=== PATIENT | male | born 1970 | race Caucasian/White ===

== ENCOUNTER 2018-03-22 07:22 | Day surgery (SDC) | payer OTHER ==
[2018-03-22] MEDS ORDERED: Propofol 10 mg/ml Inj (20 ML) ONE (09:17)
--- NOTE | 2018-03-22 09:25 | CP.SDSHP ---
Same Day Surgery H & P - History Proposed Procedure: colonoscopy Pre-Op Diagnosis: history of colon polyps - Previous Medical/Surgical History Comments: hyperlipidemia - Allergies Allergies: Allergies No Known Allergies Allergy (Verified 03/22/18 08:01) - Physical Exam General Appearance: NAD Vital Signs: Vital Signs 03/22/18 08:03 Temperature 97 F L Pulse Rate 50 L Respiratory 19 Rate Blood Pressure 114/66 O2 Sat by Pulse 99 Oximetry Mental Status: Alert & Oriented x3 Neuro: WNL Heart: WNL Lungs: WNL GI: WNL - {Optional Preform as Required} Abdomen: WNL - Impression Pt. Evaluated Today:Candidate for Anesthesia & Procedure: Yes - Date & Time Date: 03/22/18 Time: 09:25 Short Stay Discharge - Short Stay Discharge Admitting Diagnosis/Reason for Visit: H/O/ COLON POLYPS Disposition: HOME/ ROUTINE
[2018-03-22 11:51] VITALS: TEMP 98.2
[2018-03-22 11:56] VITALS: O2SAT 100
[2018-03-22 12:14] VITALS: BP 133/86; PULSE 51; RESP 12
== END 2018-03-22 11:00 | disposition home or self-care (01) ==
LOC: C.ENDO 07:22
PROVIDERS: ATTEND Internal Medicine Gastroenterology
DX: D12.5 Benign neoplasm of sigmoid colon (principal); D12.3 Benign neoplasm of transverse colon; Z86.010 Personal history of colon polyps; E78.5 Hyperlipidemia, unspecified
CPT/HCPCS: 45380; 45385; 88305; J2704